=== PATIENT | female | born 1960 | race Caucasian/White ===

== ENCOUNTER → 2016-10-31 | Outpatient (CLI) | payer MEDICARE ==
[~2016-10-31] MED LIST: 00186-0370-20 IH; ABILIFY 10MG TA10 MG PO; ABILIFY20 MG PO; ALBUTEROL1.25 MG/3 IH; COUMADIN 5MG5 MG/TAB PO; COUMADIN 77.5 MG/TAB PO; COUMADIN PO; DOXYCYCLINE 10100 MG PO; FASTIN30 MG PO; FERROUS SU325 MG/TAB PO; FOLIC ACID PO; KLONOPIN 1MG1 MG PO; LAMICTAL 100MG100 MG PO; LAMOTRIGINE PO; LEXAPRO PO; LISINOPRIL PO; PHENTERMINE15 MG PO; PREDNISONE10 MG PO; PRINZIDE 25 MG-1 TAB PO; PRISTIQ50 MG PO; PROAIR HFA0.09 MG/AC IH; REMERON30 MG PO; RT SPIRIVA18 MCG IH; THEO-DUR 2200 MG/TAB PO; TRAMADOL50 MG PO; VITAMIN B-1000 MCG/T PO; VITAMIN C500 MG PO; VITAMIN D32000 I1 PO; VITAMIN D50000 I1 PO; WELLBUTRIN XL300 M1 PO; ZOLOFT 100MG100 MG PO
== END ==
LOC: BHSO 10:46
DX: F33.41 Major depressive disorder, recurrent, in partial remission (principal)